=== PATIENT | female | born 1965 | race Caucasian/White ===

== ENCOUNTER 2017-01-21 05:11 | Emergency (ER) | payer OTHER ==
[~2017-01-21] VITALS: Ht 157.5 cm; Wt 62.7 kg
[2017-01-21 05:16] VITALS: BP 142/85; PULSE 96; RESP 19; O2SAT 99
[2017-01-21] MEDS ORDERED: 0.9% Sodium Chloride 1,000 ML IV ONE (05:34)
[2017-01-21] MEDS ORDERED: Ondansetron 2 mg/mL 2 mL Inj IVPUSH ONE (05:35)
[2017-01-21 05:59] LABS: BASOPHILS % (AUTO) 0.7 % (0-3); EOSINOPHILS % (AUTO) 1.5 % (0-5); MONOCYTES % (AUTO) 13.5 % (4-12); Mean Corpuscular Volume 92.1 fL (81-100); NEUTROPHILS % (AUTO) 54.9 % (40-74); Platelet Count 280 bil/L (150-400)
[2017-01-21 06:07] LABS: D-Dimer < 0.50 mg/L FEU (<0.50); INR 1.01 ratio
--- NOTE | 2017-01-21 06:14 | ED.REPORT ---
HPI-General Illness Date of Service Jan 21, 2017 ED Provider: Frank June MD Patient is an otherwise healthy 51 year old female who presents to the ED complaining of upper back pain, nonradiating, onset last night that awoke her around 0345 this morning. Her pain is intermittent, mostly localized to the L side, dull with intermittent sharpness, rated a 3/10 in severity, and improved with particular movement. Her pain was exacerbated by laying flat. She does report associated palpitations and some chest discomfort, resolved. She denies recent trauma or heavy lifting. She denies SOB, numbness, tingling, focal weakness, bowel or bladder incontinence, urinary retention, fever, chills, abdominal pain, hematuria, hematochezia, headache, vision changes, or any other symptoms. She had similar symptoms about 2 weeks ago. Nursing Notes Stated Complaint: CHEST/UPPER BACK PAIN Chief Complaint: Dysrhythmia/Cardiac Nursing Notes Reviewed: Yes Allergies: Coded Allergies: No Known Allergies (Unverified , 01/21/17) General Time Seen by MD: 05:27 Chief Complaint Back pain Hx Obtained From: Patient Arrived By: Walk-in Sudden in Onset?: Yes Onset Occurred: 1 - 4 hours ago Symptom Duration: Intermittent Location: : Back: Chest Quality: Dull, Sharp Severity: Current: Pain level 3 out of 10 Severity: Maximum: Moderate Additional Notes: palpitations Pertinent Negative: Pt denies other symptoms Context Related History: Denies Coronary artery disease, Denies Diabetes mellitus Similar Sx Previous: Yes Past Medical History Past Medical History Anxiety Past Surgical History Reports: Hysterectomy Family History Reports: Coronary artery disease Smoking History Unknown if Ever Smoker Social History Alcohol Use: 1-3 per day Other Social History: Good social support, Ambulatory Status Independent Review of Systems -tingling Full Review of Systems Constitutional: Denies: Chills, Fever Respiratory: Denies: Shortness of breath Cardiovascular: Reports: Chest pain (discomfort ), Palpitations GI: Denies: Abdominal pain, Hematochezia Female: Denies: Hematuria, Incontinence, Urination decreased Musculoskeletal: Reports: Back pain Neurologic: Denies: Bladder dysfunction, Bowel dysfunction, Focal weakness, Headache, Numbness, Vision change Complete sys rev & neg: except as marked. Physical Exam Nursing note and vitals reviewed. Mild hypertensive, otherwise vitals grossly w/ in normal limits. Constitutional: Well-developed, well-nourished. Not diaphoretic. Head: Normocephalic and atraumatic. Mouth/Throat: Oropharynx is clear and moist. No oropharyngeal exudate. Eyes: EOM are normal. Pupils are equal, round, and reactive to light. Neck: Supple, no tracheal deviation. Cardiovascular: Normal rate, regular rhythm. Equal and intact distal pulses throughout. Pulmonary/Chest: Effort normal and breath sounds normal. No respiratory distress. Abdominal: Soft. No distension. There is no tenderness, rebound, or guarding. Musculoskeletal: Range of motion grossly intact, moving all extremities. L sided subscapular tenderness to palpation that reproduces her pain. Neurological: AOx3. Grossly nonfocal exam. Strength and sensation intact and equal to bilateral upper and lower extremities. Normal finger to nose testing Skin: Warm and dry, no rashes or pallor appreciated. Psychiatric: Appropriate mood and affect. Behavior appears normal. Vital Signs Vital Signs Date Time Temp Pulse Resp B/P Pulse Ox O2 Delivery O2 Flow Rate FiO2 01/21/17 05:16 37.0 96 19 142/85 99 Room Air Initial VS: Reviewed Interpretation & Diagnostics labs: CMP within nL limits trop neg BNP w/in nL limits CBC w/in nL limits dimer neg vitals: mild hypertensive otherwise grossly w/in nL TSH 7.450 (high) Free T4 w/in nL limits Lab Results Interpretation Result Diagram: 01/21/17 0535 01/21/17 0535 Test 01/21/17 05:35 White Blood Count 7.3th/mm3 (3.8-10.1) Red Blood Count 4.28mil/mm3 (3.90-5.20) Hemoglobin 13.7g/dL (12.0-15.6) Hematocrit 39.4% (35.0-46.0) Mean Corpuscular Volume 92.1fL (81-100) Mean Corpuscular Hemoglobin 32.0pg (27.0-35.0) Mean Corpuscular Hemoglobin Concent 34.8% (32.0-37.0) Red Cell Distribution Width 12.5% (12.3-15.4) Platelet Count 280bil/L (150-400) Neutrophils (%) (Auto) 54.9% (40-74) Lymphocytes (%) (Auto) 29.4% (14-46) Monocytes (%) (Auto) 13.5% (4-12) Eosinophils (%) (Auto) 1.5% (0-5) Basophils (%) (Auto) 0.7% (0-3) Prothrombin Time 10.8sec (8.1-12.5) Prothromb Time International Ratio 1.01ratio Activated Partial Thromboplast Time 30.0sec (22.8-33.0) D-Dimer < 0.50mg/L FEU (<0.50) Sodium Level 137mEq/L (134-144) Potassium Level 3.7mEq/L (3.5-5.2) Chloride Level 100mEq/L (97-108) Carbon Dioxide Level 19mmol/L (18-29) Blood Urea Nitrogen 15mg/dL (6-24) Creatinine 0.73mg/dL (0.57-1.00) Estimat Glomerular Filtration Rate 120mL/min (>59) Glucose Level 103mg/dL (60-99) Calcium Level 9.0mg/dL (8.5-10.1) Magnesium Level 1.9mg/dL (1.6-2.6) Total Bilirubin 0.2mg/dL (0.0-1.2) Aspartate Amino Transf (AST/SGOT) 19U/L (0-50) Alanine Aminotransferase (ALT/SGPT) 13U/L (0-32) Alkaline Phosphatase 53U/L (25-150) Troponin T 0.010ug/L (0.0-0.011) Pro-B-Type Natriuretic Peptide 13.40pg/mL (0-249) Total Protein 7.0g/dL (6.4-8.4) Albumin 4.4g/dL (3.4-5.0) Thyroid Stimulating Hormone (TSH) 7.450uIU/mL (0.450-4.500) Free Thyroxine 0.89ng/dL (0.82-1.77) Hold Adams Top Tube Received (Received) ECG Interpretation ECG Interpretation: Sinus rate 94 no acute ischemic changes normal intervals Time: 05:19 Interpreted by: ED physician X-Ray Chest Interpretation Chest Xray Interpretation: No acute abnormalities View: Portable, 1 view Interpretation / Wet Read by: Discussed w radiologist Re-Eval/Medical Decision Med Decision/Clinical Course In summary, 51-year-old female presenting to the ED for evaluation of back pain in the left mid back that started earlier this morning, subsequently noted to also have some brief palpitations and chest discomfort. Differential includes ACS, PE, PTX, aortic dissection, muscle strain, myocarditis/pericarditis, tachydysrhythmia, abdominal etiology such as cholecystitis, MSK pain. Troponin negative. HEART score of 2. EKG demonstrates sinus rhythm with no acute ischemic changes. D-dimer negative, no pleuritic symptoms, not tachycardic or hypoxic. No evidence of pneumothorax on chest x-ray or exam. Pain not described as tearing or severe, not really radiating through to the chest/back, CXR w/ no evidence of widened mediastinum, normal neuro exam, and equal pulses to bilateral upper and lower extremities; aortic dissection seems very unlikely. Neither clinical presentation, exam, or EKG seem c/w pericarditis or myocarditis. No abdominal pain or tenderness. TSH is mildly elevated at 7.45, however free T4 is within normal limits. I discussed this with the patient. Rest of labs reviewed, unremarkable, including a CBC, CMP, BNP, within normal limits. She is not having any bowel or bladder incontinence, urinary retention , or unilateral numbness, weakness, or tingling that would suggest a compressive syndrome. She does have some reproducible pain on the left side of her back, I think that this is at least contributing to her symptoms. Patient would likely benefit from a stress test for risk stratification - discussed doing this as an outpatient and patient states that she can follow-up with her PCP tomorrow. This seems reasonable. Plan discharge home with careful return precautions. Patient agreeable to plan, no further questions. Time of Eval: 08:01 Re-Evaluation/Progress Note: Discussed plan for discharge and close f/u. Patient understands and agrees with plan. All questions addressed at this time. Counseled Regarding: Diagnosis, Lab results, Need for follow-up, When/why to return to ED Discharge & Departure Primary Impression: Thoracic back pain Chronicity: acute Back pain laterality: unspecified Qualified Code: M54.6 - Pain in thoracic spine Additional Impression: Chest discomfort Disposition: Home Discharge Condition All VS Reviewed: Yes Condition: Stable Patient Instructions: Thoracic Pain (ED) Additional Instructions: Thank you for entrusting us with your care. Your labs, EKG, x-ray, and exam are reassuring. We did not find a dangerous cause for your symptoms at this time. Call your doctor tomorrow morning to schedule a follow-up appointment. Talk to you doctor about scheduling an out-patient stress test and possibly a Holter monitor. Your TSH (thyroid) level was slightly elevated. Please have this re- evaluated by your doctor. Return to the emergency department for worsening chest pain, palpitations, shortness of breath, bowel or bladder incontinence, urinary retention, vision changes, headache, lightheadedness, or any other symptoms of concern to you. Referrals: Queenie Morris MD (PCP) Scribe Attestation Portions of this note were transcribed by Apoorva Lord. I, Dr. June personally performed the history, physical exam and medical decision-making; I reviewed and confirmed the accuracy of the information in the transcribed note. Signed by: Eren Allen, 01/21/17 copies to: Queenie Morris MD, William B MD Jan 21, 2017 06:13 APOORVA LORD Jan 21, 2017 07:38
[2017-01-21 06:40] LABS: Magnesium 1.9 mg/dL (1.6-2.6); TROPONIN T 0.01 ug/L (0.0-0.011)
[2017-01-21 07:30] VITALS: BP 119/72; PULSE 89; RESP 16; O2SAT 100
[2017-01-21 08:00] VITALS: BP 121/70; PULSE 96; RESP 18; O2SAT 99
[2017-01-21 08:30] VITALS: BP 124/59; PULSE 90; RESP 20; O2SAT 98
--- NOTE | 2017-01-21 08:48 | DRSVH ---
PROCEDURE: X-RAY CHEST ONE VIEW, PORTABLE ([id number]) INDICATIONS: chest pain TECHNIQUE: One view of the chest was acquired. COMPARISON: None. FINDINGS: Surgical changes and devices: None. Lungs and pleura: No pleural effusions or pneumothorax. Lungs are clear. There is mild hyperinflat ion of the lungs with slight flattening of the hemidiaphragms suggestive of COPD. Mediastinum: Mediastinal contours appear normal. Heart size is normal. Bones and chest wall: No suspicious bony lesions. Overlying soft tissues appear unremarkable. IMPRESSION: 1. Findings suggestive of COPD without acute consolidation. Dictated by: Franki Christiansen M.D. on 01/21/2017 at 8:44 Approved by: Franki Christiansen M.D. on 01/21/2017 at 8:46
== END 2017-01-21 09:10 | disposition home or self-care (01) ==
LOC: SED 05:11
DX: M54.6 Pain in thoracic spine (principal); R07.89 Other chest pain; Z90.710 Acquired absence of both cervix and uterus; R00.2 Palpitations
CPT/HCPCS: 36415; 71010; 80053; 83735; 83880; 84439; 84443; 84484; 85025; 85378; 85610; 85730; 93005; 96360; 99285; J7030